=== PATIENT | female | born 1950 | race Hispanic/Latino ===

== ENCOUNTER 2017-01-16 10:09 | Emergency (ER) | payer OTHER ==
[2017-01-16 10:09] VITALS: BMI 25.0
--- NOTE | 2017-01-16 10:37 | ED PDOC ---
Arrival/HPI - General Chief Complaint: Abdominal Pain Time Seen by Provider: 01/16/17 10:13 Historian: Patient - History of Present Illness Narrative History of Present Illness (Text): 01/16/17 10:30 Belen Hodge is a 66 year old female, whose past medical history includes a hernia in her umbilical region, appendectomy, and ovarian cysts, who presents to the emergency department complaining of intermittent constipation for the past three weeks, that has become worse in the past three days. Patient reports she has had no actual stool movements for the past three days and has noted red/ mucus residue. Patient states taking a Laxative yesterday, which only made her gassy. Patient denies fever, vomiting, shortness of breath, or other complaints. PMD: Dr. Causey Time/Duration: > week (3 weeks ) Symptom Course: Intermittent, Worsening (no bowel movement for three days ) Past Medical History - Provider Review Nursing Documentation Reviewed: Yes - Past History Past History: No Previous - Psychiatric Hx Depression: No Hx Emotional Abuse: No Hx Physical Abuse: No Hx Substance Use: No - Past Surgical History Past Surgical History: No Previous - Surgical History Hx Appendectomy: Yes - Suicidal Assessment Feels Threatened In Home Enviroment: No Family/Social History - Physician Review Nursing Documentation Reviewed: Yes Family/Social History: Unknown Family HX Smoking Status: Never Smoked Hx Alcohol Use: No Hx Substance Use: No Allergies/Home Meds Allergies/Adverse Reactions: Allergies No Known Allergies Allergy (Verified 01/16/17 10:22) Review of Systems - Review of Systems Constitutional: absent: Fevers Respiratory: absent: SOB Cardiovascular: absent: Chest Pain Gastrointestinal: Abdominal Pain, Stool Changes (red residue noted), Constipation. absent: Vomiting Genitourinary Female: absent: Dysuria Musculoskeletal: absent: Back Pain Physical Exam - Physical Exam Narrative Physical Exam (Text): Constitutional: No acute distress. Head: Normocephalic. Atraumatic. Eyes: PERRL. ENT: Moist mucous membranes. Neck: Supple. Cardiovascular: Regular rate. Chest: No tenderness. Respiratory: Clear to auscultation bilaterally. GI: Soft. Nontender. Nondistended. Rectal: Hemorrhoid, not thrombosed. guaiac exam: negative but no stool obtained. Branch Sales And Service Representative: Jadyn Sancho Back: No CVA tenderness. Musculoskeletal: No tenderness or swelling of extremities. Skin: No rash. Neurologic: Alert, no focal deficit. Vital Signs Reviewed: Yes Vital Signs Temp Pulse Resp BP Pulse Ox 01/16/17 12:33 67 18 143/86 96 01/16/17 10:18 98 F 74 16 124/86 95 Temperature: Afebrile Blood Pressure: Normal Pulse: Regular Respiratory Rate: Normal Appearance: Positive for: Well-Appearing, Non-Toxic, Comfortable Pain Distress: None Mental Status: Positive for: Alert and Oriented X 3 Medical Decision Making ED Course and Treatment: 01/16/17 Impression: 66 year old female with constipation for three days. On rectal exam, guaiac was negative but no stool was obtained. Plan: -- CT Abdomen & Pelvis -- Labs -- Urinalysis -- Reassess and disposition Progress Notes: 01/16/17 13:12 CT Abdomen and Pelvis with contrast FINDINGS: LOWER THORAX: Unremarkable. LIVER: Unremarkable. No gross lesion or ductal dilatation. GALLBLADDER AND BILE DUCTS: Unremarkable. PANCREAS: Unremarkable. No gross lesion or ductal dilatation. SPLEEN: Unremarkable. ADRENALS: Unremarkable. No mass. KIDNEYS AND URETERS: Unremarkable. No hydronephrosis. No solid mass. VASCULATURE: Unremarkable. No aortic aneurysm. BOWEL: There is a large amount of inflammation around the sigmoid colon consistent with moderate diverticulitis. There is no evidence of abscess or focal perforation. There is mural thickening APPENDIX: Normal appendix. PERITONEUM: Unremarkable. No free fluid. No free air. LYMPH NODES: Unremarkable. No enlarged lymph nodes. BLADDER: Unremarkable. REPRODUCTIVE: Unremarkable. BONES: No acute fracture. OTHER FINDINGS: None. IMPRESSION: There is a large amount of inflammation around the sigmoid colon consistent with moderate diverticulitis. There is no evidence of abscess or focal perforation. There is mural thickening Patient in ED in no acute distress. No leukocytosis. Vitals normal. Patient would like to be treated with oral antibiotics at home, which is appropriate. She states she will follow up with Dr. Causey in office. I instructed her to return to ED for worsening pain or fever. Instructed on diet, antibiotics, and stool softener. - Lab Interpretations Lab Results: 01/16/17 10:50 01/16/17 10:50 Lab Results 01/16/17 11:25: Blood Type Confirm A POSITIVE 01/16/17 10:50: Blood Type A POSITIVE, Antibody Screen Negative, BBK History Checked No verified bt 01/16/17 10:50: Sodium 139, Potassium 4.1, Chloride 105, Carbon Dioxide 27, Anion Gap 11, BUN 20, Creatinine 0.9, Est GFR ( Amer) > 60, Est GFR (Non- Af Amer) > 60, Random Glucose 103, Calcium 9.2, Total Bilirubin 0.7, AST 45 H, ALT 40, Alkaline Phosphatase 103, Total Protein 6.8, Albumin 3.9, Globulin 3.0, Albumin/Globulin Ratio 1.3, Lipase 103 01/16/17 10:50: PT 11.9, INR 1.06, APTT 29.9 01/16/17 10:50: WBC 6.0, RBC 4.04, Hgb 13.6, Hct 40.3, MCV 99.8, MCH 33.7, MCHC 33.7, RDW 11.9, Plt Count 266, MPV 10.3, Gran % 74.0 H, Lymph % (Auto) 15.1 L, Sherman % (Auto) 9.0 H, Eos % (Auto) 1.7, Baso % (Auto) 0.2, Gran # 4.45, Lymph # 0.9 L, Sherman # 0.5, Eos # 0.1, Baso # 0.01 I have reviewed the lab results: Yes - RAD Interpretation Radiology Orders: 01/16/17 10:40 ABD & PELVIS IV CONTRAST ONLY [CT] Stat Production Inspector: Radiologist - Medication Orders Current Medication Orders: Discontinued Medications Sodium Chloride (Sodium Chloride 0.9%) 1,000 mls @ 999 mls/hr IV .Q1H1M STA Stop: 01/16/17 11:40 Last Admin: 01/16/17 10:53 Dose: 999 mls/hr eMAR Start Stop Document 01/16/17 10:53 SRE (Rec: 01/16/17 10:55 SRE [id number]) Intravenous Solution Start Date 01/16/17 Start Time 10:55 End Date 01/16/17 End time 12:00 Total Infusion Time 65 - Scribe Statement The provider has reviewed the documentation as recorded by the Mir Kingsley Provider Scribe Attestation: All medical record entries made by the Scribe were at my direction and personally dictated by me. I have reviewed the chart and agree that the record accurately reflects my personal performance of the history, physical exam, medical decision making, and the department course for this patient. I have also personally directed, reviewed, and agree with the discharge instructions and disposition. Disposition/Present on Arrival - Present on Arrival Any Indicators Present on Arrival: No History of DVT/PE: No History of Uncontrolled Diabetes: No Urinary Catheter: No History of Decub. Ulcer: No History Surgical Site Infection Following: None - Disposition Have Diagnosis and Disposition been Completed?: Yes Diagnosis: Diverticulitis Disposition: HOME/ ROUTINE Disposition Time: 13:13 Patient Plan: Discharge Patient Problems: Current Active Problems Problem Status Onset Diverticulitis Acute Condition: STABLE Discharge Instructions (ExitCare): Diverticulitis (ED) Prescriptions: Ciprofloxacin [Cipro] 500 mg PO BID #20 tab Docusate [Colace] 100 mg PO BID #30 cap Metronidazole [Flagyl] 500 mg PO Q8 #30 tab Referrals: Chacorta Causey DO [Primary Care Provider] - Follow up with primary Forms: [employer] formerly [employer] (Faroese)
[2017-01-16] MEDS ORDERED: Sodium Chloride 0.9% 1,000 ML IV STA (10:40)
[2017-01-16 11:15] LABS: BASO # 0.01 K/mm3 (0.0-2.0); BASO % 0.2 % (0.0-3.0); EOS # 0.1 (0.0-0.7); EOS % 1.7 % (1.5-5.0); GRAN # 4.45 (1.4-6.5); HEMATOCRIT 40.3 % (36.0-48.0); LYMPH # 0.9 (1.2-3.4); LYMPH % 15.1 % (22.0-35.0); MEAN CELL VOLUME 99.8 fl (80.0-105.0); MEAN CORPUSCULAR HEMOGLOBIN 33.7 pg (25.0-35.0); MEAN CORPUSCULAR HGB CONC 33.7 g/dl (31.0-37.0); MEAN PLATELET VOLUME 10.3 fl (7.0-11.0); MONO # 0.5 (0.1-0.6); RED CELL DISTRIBUTION WIDTH 11.9 % (11.5-14.5)
[2017-01-16 11:20] LABS: ALB/GLOB RATIO 1.3 (1.1-1.8); ALKALINE PHOSPHATASE 103 U/L (38-126); ALT/SGPT 40 U/L (7-56); AST/SGOT 45 U/L (14-36); BILIRUBIN,TOTAL 0.7 mg/dL (0.2-1.3); BLOOD UREA NITROGEN 20 mg/dL (7-21); CALCIUM 9.2 mg/dL (8.4-10.5); CARBON DIOXIDE 27 mmol/L (21-33); CHLORIDE 105 mmol/L (98-107); GFR AFRICAN-AMERICAN > 60; GLUCOSE,RANDOM 103 mg/dL (70-110); LIPASE 103 U/L (23-300); POTASSIUM 4.1 mmol/L (3.6-5.0); SODIUM 139 mmol/L (132-148); TOTAL PROTEIN 6.8 g/dL (5.8-8.3)
[2017-01-16 11:23] LABS: INR 1.06 (0.93-1.08); PARTIAL THROMBOPLASTIN TIME 29.9 Seconds (25.1-36.5)
[2017-01-16] MEDS ORDERED: Iohexol 350 MG/100 ML VIAL ONE (12:03)
--- NOTE | 2017-01-16 12:59 | CT ---
PROCEDURE: CT Abdomen and Pelvis with contrast HISTORY: constipation, GI bleed COMPARISON: None. TECHNIQUE: Contrast dose: 100 cc of Omni 350 Radiation dose: Total exam DLP = 479 mGy-cm. This CT exam was performed using one or more of the following dose reduction techniques: Automated exposure control, adjustment of the mA and/or kV according to patient size, and/or use of iterative reconstruction technique. FINDINGS: LOWER THORAX: Unremarkable. LIVER: Unremarkable. No gross lesion or ductal dilatation. GALLBLADDER AND BILE DUCTS: Unremarkable. PANCREAS: Unremarkable. No gross lesion or ductal dilatation. SPLEEN: Unremarkable. ADRENALS: Unremarkable. No mass. KIDNEYS AND URETERS: Unremarkable. No hydronephrosis. No solid mass. VASCULATURE: Unremarkable. No aortic aneurysm. BOWEL: There is a large amount of inflammation around the sigmoid colon consistent with moderate diverticulitis. There is no evidence of abscess or focal perforation. There is mural thickening APPENDIX: Normal appendix. PERITONEUM: Unremarkable. No free fluid. No free air. LYMPH NODES: Unremarkable. No enlarged lymph nodes. BLADDER: Unremarkable. REPRODUCTIVE: Unremarkable. BONES: No acute fracture. OTHER FINDINGS: None. IMPRESSION: There is a large amount of inflammation around the sigmoid colon consistent with moderate diverticulitis. There is no evidence of abscess or focal perforation. There is mural thickening
[2017-01-16 13:37] VITALS: BP 139/84; PULSE 69; RESP 16; TEMP 97.6; O2SAT 97
[2017-01-16 13:40] LABS: URINE BILIRUBIN NEGATIVE (NEGATIVE); URINE BLOOD SMALL (NEGATIVE); URINE GLUCOSE (UA) NEGATIVE (NEGATIVE); URINE KETONE NEGATIVE (NEGATIVE); URINE LEUKOCYTE ESTERASE NEGATIVE Leu/uL (NEGATIVE); URINE PROTEIN NEGATIVE mg/dL (<30 mg/dL); URINE UROBILINOGEN 0.2 E.U./dL (<1 E.U./dL)
[2017-01-16 13:42] LABS: URINE APPEARANCE CLEAR (CLEAR); URINE COLOR YELLOW (YELLOW)
[2017-01-16 14:12] LABS: URINE BACTERIA SMALL (NEG); URINE EPITHELIAL CELLS 0 - 2 /hpf (0-5); URINE RBC 0 - 2 /hpf (0-2); URINE WBC 0 - 2 /hpf (0-6)
== END 2017-01-16 13:50 | disposition home or self-care (01) ==
LOC: ED 10:09
DX: K57.92 Diverticulitis of intestine, part unspecified, without perforation or abscess without bleeding (principal)
CPT/HCPCS: 74177; 80053; 81001; 83690; 85025; 85610; 85730; 86850; 86900; 96360; 99283; J7040; Q9967